=== PATIENT | female | born 1950 | race Caucasian/White ===

== ENCOUNTER 2016-12-29 08:53 | Outpatient (CLI) | payer MEDICARE, MEDICAID ==
[~2016-12-29] VITALS: Ht 160 cm; Wt 108.3 kg
--- NOTE | ~2016-12-29 | CATH ---
Cardiac Diagnostic + PCI Report Demographics Patient Name DEION Hernandes Gender Female Date of 1950 Age 66 year(s) Patient Number [id number] Date of Study 12/29/2016 Visit Number [id number] Room Number G6301 [place] [id number] Ht 160.02 cm Wt 106.9 kg Referring Alma France Primary Physician Physician STEWART Performing [facility] Secondary Physician Physician Roseann MELGAR Diagnostic [facility] Assisting Physician Physician Roseann MELGAR Interventional [facility] Physician Assisted Living Housekeeper Physician Roseann MELGAR Findings and Conclusions Diagnostic Findings and Conclusion One vessel obstructive CAD, proximal RCA with 90% stenotic lesion. Unstable Angina with evidence of inferior wall ischemia on lexiscan stress test. Patient is on 2 antianginal agents and continues to have angina. Diagnostic Recommendations PCI of RCA. Interventional Findings and Conclusion S\E\E\E\P PCI of RCA with 3.5 X 16 Promus CARISA, deployed at 14 gagan. Interventional Recommendations DAPT X 1 year. Patient will be observed overnight. Continue current medications. Hydration and followup creatinine. Patient has been instructed to not lift anything more than 5 pounds for 1 week. Aggressive medical therapy for coronary artery disease. Optimization of medical therapy as an inpatient. Optimization of medical therapy as an outpatient. Referral to Cardiac Rehabilitation now and at discharge . Procedure Description The patient was brought to the diagnostic cardiac catheterization-EP laboratory in the fasting, non-sedated state. Informed consent was obtained in the written and verbal form after the risks and benefits were explained. The patient had no further questions and agreed to proceed. The planned puncture-incision site(s) were shaved and prepped with ChloraPrep and draped in the usual sterile manner. Conscious sedation, supplemental oxygen, and pain control medications were delivered by a registered nurse under physician guidance. Surface ECG rhythm, blood pressure measurement, and pulse oximetry were monitored throughout the procedure. Arterial access. The access site was infiltrated with lidocaine. The vessel was entered with the Seldinger technique. A sheath was advanced into the vessel and used for catheter placement. Selective left coronary angiography. A catheter was advanced into the left coronary vessel ostium under Fluoroscopic guidance. Contrast was injected by hand. Images were obtained in multiple projections. Selective right coronary angiography. A catheter was advanced into the right coronary vessel ostium under fluoroscopic guidance. Contrast was injected by hand. Images were obtained in multiple projections. Left heart catheterization. A catheter was advanced across the aortic valve to the left ventricle under fluoroscopic guidance. Resting hemodynamics were obtained. Angioplasty and Stent Placement: A guiding catheter was used to intubate the vessel. A 0.14 wire was then used to cross the lesion. A balloon catheter was placed across the lesion and inflated. The balloon catheter was then removed. A Drug Eluting Stent was placed and inflated. Post placement angiograms were performed. Arterial artery hemostasis was achieved. The patient was transferred to a regular nursing floor via cart accompanied by a nurse. The patient left the laboratory in stable condition. Diagnostic Cath Status: Elective Interventional Cath Status: Urgent Procedure Procedure Type Diagnostic procedure:Angiography:, Coronary Angios w/[facility] PCI procedure:Drug Eluting Coronary Stent:, RCA Indications: Non-invasive tests a cardiolite test positive and Hypertension. The procedure was explained in detail to the patient. Risks, complications and alternative treatments were reviewed. Written consent was obtained. Medications Reviewed with Patient prior to Procedure. Angiographic Findings Dominance: Mixed Cardiac Arteries and Lesion Findings LMCA: Normal (0% Stenosis). LAD: Lesion on Mid LAD: Mid subsection.10% stenosis . Lesion on 1st Diag: Mid subsection.10% stenosis . LCx: Lesion on 2nd Ob Sandy: Mid subsection.30% stenosis . RCA: PL and PDA normal. Lesion on Prox RCA: Proximal subsection.90% stenosis 12 mm length reduced to 0%. Pre procedure NAYAN III flow was noted. Post Procedure NAYAN III flow was present. The guidewire cross was successful.The lesion was diagnosed as a low risk lesion.Culprit lesion. Treatment results:Interventional treatment was successful. Devices used - Runthrough NS .014 x 180. Number of passes: 1. - Emerge Balloon 3.0 x 12. 1 inflation(s) to a max pressure of: 8 gagan. - Promus Premier 3.5 x 16 Stent. 2 inflation(s) to a max pressure of: 14 gagan. Coronary Tree Procedure Data Procedure Date Date: 12/29/2016Start: 12:12 PMEnd: 12:49 PM Entry Locations - Retrograde Percutaneous access was performed through the Right Femoral artery (Primary location). A 6 Fr sheath was inserted. Hemostasis was successfully obtained using Manual Compression. Closure Comments: 10 ml's of air in Radial band. Placed by Reena.. Procedure Medications Order and Administration + + + +--------+ !Time !Medication !Dosage !Route ! + + + +--------+ !12/29/2016 12:05 PM !Fentanyl !25 mcg !I.V. ! + + + +--------+ !12/29/2016 12:09 PM !Versed !1 mg !I.V. ! + + + +--------+ !12/29/2016 12:10 PM !Oxygen !2 l/min !NC ! + + + +--------+ !12/29/2016 12:16 PM !Heparin (ACC_3) !5000 units !I.V. ! + + + +--------+ !12/29/2016 12:31 PM !Heparin (ACC_3) !3000 units !I.V. ! + + + +--------+ !12/29/2016 12:50 PM !Plavix (ACC_8) !600 mg !P.O. ! + + + +--------+ Devices Used - A5 Fr. BS JR 4 Diag. Catheterwas used for:Right coronary angiography. - A5 Fr. BS JL 3.5 Diag. Catheterwas used for:Left coronary angiography. - A6 Fr. JR4 Guide Catheterwas used for:RCA Intervention. Contrast Material - Isovue 47046 ml Fluoroscopy Time: Diagnostic: 8:12 minutes. Total: 8:12 minutes. Fluoroscopy Dose: Diagnostic: 1336 mGy. Total: 1336 mGy. Estimated Blood Loss: 15 ml. Additional [facility] PCI Information PCI Indication:PCI for high risk Non-STEMI or unstable angina. Medical History Performed Procedures and Imaging Results - Stress testing with SPECT MPIwas performed. Results were: Positive. Risk/Extent of ischemia was: Intermediate risk. History of Disease + + + + !Diagnosis !Date !Comments ! + + + + !Hypertension ! ! ! + + + + Allergies - Sulfa. Risk Factors The patient risk factors include:treated hypertension, chronic lung disease, last creatinine: 0.8 mg/dl, creatinine clearance: 118.31 ml/min and Current/Recent(w/in 1 year) tobacco use. Admission Data Admission Date: 12/29/2016 Admission Time: 08:53 AM Admit Source: Other Insurance Payors: Medicare. Admission Medications + +------+------+ + + + + !Medication !Dosage!Times !Last !Last !Administered !Comments ! ! ! !Per !Delivery !Delivery ! ! ! ! ! !Day !Date !Time ! ! ! + +------+------+ + + + + !ARB (any) ! ! ! ! !Yes ! ! + +------+------+ + + + + !Beta ! ! ! ! !Yes ! ! !Dayami ! ! ! ! ! ! ! !(any) ! ! ! ! ! ! ! + +------+------+ + + + + !Aspirin ! ! ! ! !Yes ! ! !(any) ! ! ! ! ! ! ! + +------+------+ + + + + Clinical Evaluation Leading to Procedure - The patient's CAD presentation was assessed as: Unstable angina. - The patient's anginal syndrome during the past two weeks was assessed as: Class III according to the [place] Cardiovascular Society Classification System (CCS). Anti-anginal medications were prescribed during the past two weeks. The medications are: Beta Blockers and Ranolazine. - The patient has been in a state of heart failure within the past two weeks. - The patient's heart failure status was assessed as NYHA Class III, with CHF symptoms of MORROW. Snapshots Hemodynamics Condition: Rest O2 Consumption: Estimated: 189.27Heart Rate: 65 bpm Pressures (mmHg) +-----+ + !Site !Pressure ! +-----+ + !AO !118/61 (85) ! +-----+ + !LV !121/13 ,17 ! +-----+ + !LV !117/11 ,15 ! +-----+ + !AO !122/64 (88) ! +-----+ + !LV !118/11 ,15 ! +-----+ + Valve Gradients and Areas + +---------+---------+---------+ +---------+ + !Valve !Peak !Mean !Area !Index !Flow !Source ! + +---------+---------+---------+ +---------+ + !Aortic !0 ! ! ! ! ! ! + +---------+---------+---------+ +---------+ + !Aortic !0 ! ! ! ! ! ! + +---------+---------+---------+ +---------+ + Shunts Oxygen Values O2 Capacity 218.96 O2 Consumption 189.27 Discharge Data Discharge Date: 12/30/2016 Hospital Status: Outpatient Signatures dtt: ROSEANN FLORES dtd: 12/29/16 1212 Physician Self Edit
[~2016-12-29 08:53] MED LIST: ABILIFY2 MG PO; ASPIRIN EC81 MG PO; CARAFATE1 GM PO; CPAP INH; DESVENLAFAXINE100 MG PO; DEXILANT60 MG PO; DICYCLOMINE HCL20 MG PO; LASIX20 MG PO; LOPRESSOR50 MG PO; LOSARTAN-HCTZ1 EACH PO; MELOXICAM15 MG PO; RANEXA ER500 MG PO; RESTASIS MULTI5.5 ML OPHTH; RITALIN 5MG5 MG PO; TUDORZA PRESS400 MCG INH; WELLBUTRIN XL150 M1 PO; WELLBUTRIN XL300 M1 PO
[2016-12-29 09:38] LABS: BASOPHIL % 0.4 %; EOSINOPHIL # 0.1 K/uL (0.0-0.5); EOSINOPHIL % 0.9 %; HEMATOCRIT 48.9 % (33.0-46.0); HEMOGLOBIN 16.1 g/dL (10.0-15.0); IMMATURE GRANULOCYTE % 0.2 %; LYMPHOCYTE # 2.3 K/uL (0.8-4.0); LYMPHOCYTE % 24.5 %; MCH 31.4 pg (27.0-34.0); MCHC 32.9 gm/dL (32.0-36.5); MCV 95.3 fl (83.0-98.0); MONOCYTE # 0.5 K/uL (0.0-1.0); MONOCYTE % 5.4 %; NEUTROPHIL # (ANC) 6.4 K/uL (1.8-7.8); NEUTROPHIL % 68.6 %; NRBC % 0 /100WBC (0-0.00); PLATELET COUNT 249 K/uL (150-450); RBC 5.13 M/uL (3.50-5.50); RDW-CV 13.5 % (11.9-14.6); WBC 9.3 K/uL (4.0-11.0)
[2016-12-29 09:56] LABS: INR - (THERAPEUTIC) 0.99 (0.92-1.07); PROTIME 10.4 SECONDS (9.8-11.4); PTT 29 SECONDS (25-32)
[2016-12-29 09:59] LABS: ALBUMIN 3.6 gm/dL (3.5-5.0); ALK PHOS 77 IU/L (33-138); ALT 43 IU/L (12-78); AST 48 IU/L (10-40); BLOOD UREA NITROGEN 9 mg/dL (6-24); CALCIUM 8.8 mg/dL (8.5-10.5); CHLORIDE 105 mMol/L (96-110); CO2 25 mMol/L (22-32); CREATININE 0.8 mg/dL (0.5-1.1); SODIUM 137 mMol/L (135-145); TOTAL BILIRUBIN 0.6 mg/dL (0.0-1.5); TOTAL PROTEIN 7.8 g/dL (6.0-8.4)
[2016-12-29 10:03] LABS: ESTIMATED GFR (MDRD EQUATION) > 60
[2016-12-29 15:17] LABS: CPK 48 IU/L (21-215)
--- NOTE | 2016-12-29 17:11 | NUR ---
Significant Event: SBP 120-140'S. NSR RATES 60'S. NO C/O PAIN. RIGHT RADIAL SITE SOFT WITH BAND-AID/COBAN C/D/I. STENT TO RCA OCCLUSION. NS AT 100ML/HR VIA L) FA PIV FOR TOTAL OF 1 LITER. VOIDS PER BATHROOM, SBA. Follow up: HOME TOMORROW. CONT TO MONITOR POST-CATH.
[2016-12-30 03:10] LABS: ALBUMIN 3.2 gm/dL (3.5-5.0); ALK PHOS 65 IU/L (33-138); ALT 37 IU/L (12-78); ANION GAP 10.7 (10.0-19.0); AST 38 IU/L (10-40); BLOOD UREA NITROGEN 9 mg/dL (6-24); CALCIUM 8.5 mg/dL (8.5-10.5); CHLORIDE 107 mMol/L (96-110); CO2 26 mMol/L (22-32); CREATININE 0.6 mg/dL (0.5-1.1); ESTIMATED GFR (MDRD EQUATION) > 60; POTASSIUM 3.7 mMol/L (3.7-5.1); SODIUM 140 mMol/L (135-145); TOTAL BILIRUBIN 0.6 mg/dL (0.0-1.5); TOTAL PROTEIN 6.8 g/dL (6.0-8.4)
[2016-12-30 03:24] LABS: MAGNESIUM 1.8 mg/dL (1.8-2.6); PHOSPHORUS 4.1 mg/dL (2.5-4.9)
--- NOTE | 2016-12-30 04:19 | NUR ---
Significant Event: Patient alert and oriented x3. Vital signs stable. RA during the day. Home CPAP at night. Right radial site soft. Dressing C/D/I. Left forearm PIV saline locked. 1450ml uop this shift. Up with stand-by assist in room. Benadryl given x1 for insomnia. Patient calm and cooperative with all cares. Follow up: Home Today.
[2016-12-30] MEDS ORDERED: LIPITOR40 MG PO (09:15)
[2016-12-30] MEDS ORDERED: PLAVIX75 MG PO (09:18)
[2016-12-30] MEDS ORDERED: NITROSTAT0.4 MG SL (09:23)
--- NOTE | 2016-12-30 10:45 | NUR ---
Discharge Summary: Patient A/O x 3. Vital signs stable on room air and CPAP at night: HR 66 in sinus rhythm, BP 156/68, O2 saturation 93%, temperature 97.9 F, RR 18, and denies pain or shortness of breath. Discharge instructions included: right radial heart cath precautions and information, signs/symptoms to be alert for, new medications/medication changes, and following up with PCP and Dr. Shah. Patient verbalizes understanding of all teaching and states she has no further questions at this time. Right wrist site clean/dry/intact with no signs of infection and CSM WNL. Denies any other needs upon discharge. Patient left PCU at 1040 per wheelchair and home to self care with frient. No other needs at time of discharge. Alan RN 12/30/16
== END 2016-12-30 10:41 | disposition disaster alternative care site (69) ==
LOC: GCAT 08:53 → GPCU 08:53 → GPOC 09:00 → GPCU 13:36 → GPOC 16:00 → GCAT 12-30 10:41
PROVIDERS: Hospitalist; Internal Medicine Interventional Cardiology
PROC: 027034Z Dilation of Coronary Artery, One Artery with Drug-eluting Intraluminal Device, Percutaneous Approach (ICD-10-PCS; principal; 2016-12-29)
PROC: B2111ZZ Fluoroscopy of Multiple Coronary Arteries using Low Osmolar Contrast (ICD-10-PCS; principal; 2016-12-29)
PROC: 4A023N7 Measurement of Cardiac Sampling and Pressure, Left Heart, Percutaneous Approach (ICD-10-PCS; principal; 2016-12-29)
DX: R07.89 Other chest pain (principal); I25.110 Atherosclerotic heart disease of native coronary artery with unstable angina pectoris; I10 Essential (primary) hypertension; Z72.0 Tobacco use; R06.09 Other forms of dyspnea; J44.9 Chronic obstructive pulmonary disease, unspecified; E78.5 Hyperlipidemia, unspecified
CPT/HCPCS: A9270; C1725; C1769; C1874; C1887; C9600; J0461; J1644; J2001; J2250; J3010; J7030